=== PATIENT | female | born 1985 | race African-American/Black ===

== ENCOUNTER 2025-05-31 12:37 | Emergency (ER) | payer MEDICAID, SELFPAY ==
--- NOTE | 2025-05-31 12:38 | ED_ITS ---
HPI - General Adult General Date Seen: 05/31/25 Chief complaint: Dizziness/Vertigo Stated complaint: dizziness Time Seen by Provider: 05/31/25 12:38 History of Present Illness HPI narrative: 40 yo F presenting to the ER today with concern for dizziness, headache, vaginal bleeding, blurry vision. Her primary care is through the [facility] in [place] so I do not have access to her old records. She reports that she is a . Her most recent delivery was about 6 months ago. She had apparently a that was complicated by gestational diabetes requiring insulin throughout. She had induction of labor but then failed to progress (apparently her cervix failed to dilate because she had had previous procedure for abnormal Pap smear (possibly a LEEP?) So her labor resulted in delivery by . Her baby was healthy. She was hospitalized for few days after her delivery with preeclampsia and required magnesium infusions but ultimately that resolved. She says that in her checks her labs were normal. She is not on any medications these days. No iron. No diabetes meds. No insulin. She had not had much vaginal bleeding since delivery. She had 1. A couple of months ago. For the past week or so she has been having heavy bouts of bleeding that happened intermittently. She says she often times have heavy dark red bleeding with very small clots that comes fairly heavily for a few hours and then resolves. Sometimes so show carefully through a pad and then stop bleeding. It has been happening off and on for the past week or so. She is not having any bleeding today. She is not having any pelvic cramping. She does not think she is because she had a tubal ligation after her most recent C- section. No vomiting. No diarrhea. No abdominal pain. For the past couple days she has also had a fairly botherssome headache. It is located throughout her head. It comes and goes. It is throughout her head. Along with that she has had some unsteadiness and she feels off balance when she is walking but better when she is lying down. Sometimes when she is walking she feels like her vision is blurry and she has trouble with her depth perception. She is not having double vision. She is not light sensitive. No fever. No neck stiffness or pain. No recent head injury. Headache was not sudden in onset. 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 She had gone about 48 hours without sleep. However she did have a good night's rest last night but the headache just isn't going away. No focal numbness or tingling or weakness. She denies any spinning or vertigo. She came down the [place] to visit her sister who was delivering a baby here in the [facility]. She felt dizzy with blurry vision while driving down and after visiting her sister she still feels like she has blurry vision and headache. She does not feel well enough to drive home so she came here to the ER. Related Data Home Medications ?Medication ?Instructions ?Recorded ?Confirmed No Known Home Medications 05/31/2505/08 Allergies Allergy/AdvReac Type Severity Reaction Status Date / Time No Known Drug Allergies Allergy Verified 05/31/25 12:55 [facility] Social History Smoking Status: Never smoker How often do you have a drink containing alcohol: never AUDIT-C Alcohol total score: 0 Non-prescribed substance use: denies use Exam Narrative: Exam Narrative: Constitutional: Appears well-developed and well-nourished. Alert. Conversant and polite.. Non toxic, but looks uncomfortable. HENT: Head: Atraumatic. No depressed skull fracture, Raccoon Eyes, Li's sign, or hemotympanum. Face normal. TMs normal Nose: Nose normal. Mouth/Throat: Oral mucosa is clear and moist. no trismus. Pharynx normal. Tonsils symmetric. No tonsillar enlargement, erythema, or exudate. Eyes: Conjunctivae normal and not really pale. EOM normal. Pupils equal, round, and reactive to light. No scleral icterus. Neck: Normal range of motion. Neck supple. No tracheal deviation present. No JVD. No stiffness Cardiovascular: Normal rate, regular rhythm. No gallop. No friction rub. No murmur heard. Symmetric radial artery pulses Pulmonary/Chest: Effort normal. No stridor. No respiratory distress. No wheezes. No rales. No rhonchi . No tenderness. Abdominal: Soft. Bowel sounds normal. No distension. No mass. No tenderness. No rebound. No guarding. Musculoskeletal: RUE: Normal range of motion. No tenderness. No deformity LUE: Normal range of motion. No tenderness. No deformity RLE: Normal range of motion. No edema. No tenderness. No deformity LLE: Normal range of motion. No edema. No tenderness. No deformity Neurological: Mental status normal. Attention normal. Alert and oriented x3. GCS 15. Memory normal. Speech fluent. Cognition normal. Cranial Nerves intact II-XII except I did not formally test gag or visual acuity. EOMI. Palate elevates symmetrically and tongue protrudes in the midline. Strength: 5/5 trapezius on the right and left 5/5 deltoid on the right and left 5/5 biceps on the right and left 5/5 triceps on the right and left 5/5 furniture arranger on the right and left 5/5 thumb opposition on the right and le ft 5/5 finger abduction on the right and le ft 5/5 hip flexors (L3) on the right and le ft 5/5 quadriceps (L4) on the right and lef t 5/5 tibialis anterior on the right and l eft 5/5 EHL (L5) on the right and left 5/5 gastrocnemius (S1) on the right and left 5/5 hamstring on the right and left Sensation intact to light touch in both upper extremities (C4-T1) Sensation intact to light touch in Both lower extremities (L4-S1). Finger to nose and coordination normal. Skin: Skin is warm and dry. No rash noted. No pallor. Normal capillary refill. Psychiatric: Normal mood. Normal affect Const: Vital Signs, click to edit/add: Vital Signs - 24 hr 05/31/25 12:55 05/31/25 14:56 Temperature 98.3 F Pulse Rate 87 Pulse Rate [Pulse Oximeter] 87 Respiratory Rate 16 16 Blood Pressure 121/87 Blood Pressure [Ri ght Upper Arm] 120/90 H Pulse Oximetry 96 97 Oxygen Delivery Me thod Room Air Room Air Course Course ED Course: Recheck-sleeping but easily aroused. Said her head headache is getting better. Feeling a little bit less dizzy. Will monitor and recheck. Discussed so far that workup and head CT are reassuring. Patient very pleased and smiling. Reevaluation(s) Reevaluation #1: Recheck-patient awake. Requested discharge to her nurse. Feeling better. Vital Signs Vital signs: Initial Vital Signs Temperature 98.3 F 05/31/25 12:55 Temperature Source Temporal Artery Scan 05/31/25 12:55 Pulse Rate 87 05/31/25 12:55 Respiratory Rate 16 05/31/25 12:55 Blood Pressure 120/90 H 05/31/25 12:55 Blood Pressure Mean 100 05/31/25 12:55 Blood Pressure Position Sitting 05/31/25 12:55 Pulse Oximetry 96 05/31/25 12:55 Oxygen Delivery Method Room Air 05/31/25 12:55 Vital Signs Temperature 98.3 F 05/31/25 12:55 Pulse Rate 87 05/31/25 12:55 Respiratory Rate 16 05/31/25 12:55 Blood Pressure 120/90 H 05/31/25 12:55 Pulse Oximetry 96 05/31/25 12:55 Oxygen Delivery Method Room Air 05/31/25 12:55 Temperature 98.3 F 05/31/25 12:55 Pulse Rate 87 05/31/25 14:56 Respiratory Rate 16 05/31/25 14:56 Blood Pressure 121/87 05/31/25 14:56 Pulse Oximetry 97 05/31/25 14:56 Oxygen Delivery Method Room Air 05/31/25 14:56 Medications Administered Medications: Discontinued Medications Generic Name Dose Route Start Last Admin Trade Name Freq PRN Reason Stop Dose Admin Diphenhydramine HCl 12.5 mg 05/31/25 13:13 05/31/25 13:34 Diphenhydramine 50 Mg/Ml Inj IVP 05/31/25 13:14 12.5 mg ONCE ONE Administration Sodium Chloride 1,000 mls @ 1,000 mls/hr 05/31/25 13:15 05/31/25 14:36 0.9 % Sodium Chloride 1000 Ml IV 05/31/25 14:14 Infused .Q1H ALBINA Infusion Ketorolac Tromethamine 15 mg 05/31/25 13:13 05/31/25 13:34 Ketorolac 15 Mg/Ml Inj IVP 05/31/25 13:14 15 mg ONCE ONE Administration Metoclopramide HCl 10 mg 05/31/25 13:13 05/31/25 13:34 Metoclopramide Hcl 5 Mg/Ml Inj IVP 05/31/25 13:14 10 mg ONCE ONE Administration Medical Decision Making MDM Narrative Medical decision making narrative: Pleasant 40-year-old female who is visiting [place] to see her sister who is having a baby, presents to the ER today with several concerns. She is about 6 months and has been having some intermittent dark red vaginal bleeding off and on for the past week. No abdominal pain or pelvic cramping with this. Does not think she is . Workup shows normal hemoglobin at 12.5, normal platelet count of 226. She has no history of coagulopathy. She is not anticoagulated. She is not . Urinalysis shows scant hematuria which is likely vaginal contamination but no other sign of infection. She is not having any flank pain to suggest kidney stone. She has primary because she is feeling dizzy and unsteady and has a bad headache that is been going on for the past couple of days. She initially attributed her bad headache to sleep deprivation since she has a 6-month-old at home and has been working nights. However it is not getting better even after some rest. Headache was not abrupt in onset. No history of head trauma. No known carbon monoxide exposure. She does not have any fever, leukocytosis, neck stiffness, or other laboratory or exam findings to suggest the presence of bacterial meningitis. Since headache was out of character for her normal headaches we did do a head CT scan which is fortunately negative for any sign of intracranial bleeding, cerebral edema, intracranial mass, or other abnormality. The patient is also experiencing dizziness for the past few days. Describes it as being mostly related to be upright and walking and is better when she lays down. This was suggest possible orthostasis. EKG is obtained and shows sinus rhythm. No ischemia. She is not having any chest pain did we did check a single screening troponin is normal. At this point I suspect that her dizziness is probably related to the headache and vaginal bleeding, rather than to an acute cardiac cause. Patient feels much better after headache medications and IV fluids given here in the ER. Headache is resolving. Dizziness is better. She feels ready to discharge. Would recommend close outpatient follow-up with PCP. Precautions for return to the ER reviewed and provided in writing. Lab Data Labs: Lab Results 05/31/25 05/31/25 Range/Units 13:14 13:30 WBC 3.89 L (4.50-11.00) K/uL RBC 4.29 (4.00-5.20) m/uL Hgb 12.5 (12.0-16.0) gm/dL Hct 38.0 (33.0-51.0) % MCV 89 (80-100) fL MCH 29 (26-34) pg MCHC 33 (32-36) gm/dL RDW Coeff of Robert 13.3 (11.5-15.5) % Plt Count 226 (140-440) K/uL Neut % (Auto) 58.8 (42.0-72.0) % Lymph % (Auto) 29.3 (20-44) % Hubbard % (Auto) 9.5 (0.0-11.0) % Eos % (Auto) 2.1 (0.0-7.0) % Baso % (Auto) 0.3 (0.0-3.0) % Neut # (Auto) 2.30 (1.7-7.0) K/uL Lymph # (Auto) 1.10 (0.90-2.90) K/uL Hubbard # (Auto) 0.40 (0.00-0.90) K/UL Eos # (Auto) 0.10 (0.00-0.50) K/uL Baso # (Auto) 0.00 (0.00-0.30) K/uL Abs Immat Gran (auto) 0.00 (0.00-0.30) K/uL Imm/Tot Granulo (auto) 0.0 % Sodium 134 L (135-149) mmol/L Potassium 4.1 (3.6-5.1) mmol/L Chloride 99 (96-114) mmol/L Carbon Dioxide 30 (20-32) mmol/L Anion Gap 5 L (7-15) mEq/L BUN 11 (5-24) mg/dL Creatinine 0.9 (0.5-1.5) mg/dL Estimated Creat Clear 74.77 Estimated GFR 83 ml/min Glucose 112 (60-115) mg/dL Lactate 0.9 (0.5-1.9) mmol/L Calcium 8.9 (8.4-10.6) mg/dL Troponin I < 0.01 (0.01-0.04) ng/mL HCG, Qual Negative (Negative) Urine Color Yellow (Yellow) Urine Appearance Clear (Clear) Urine pH 8.0 (5.0-8.5) Ur Specific [place] 1.015 (1.000-1.030) Urine Protein Negative (Negative) Urine Glucose (UA) Negative (Negative) Urine Ketones Negative (Negative) Urine Blood Trace-intact A (Negative) Urine Nitrite Negative (Negative) Urine Bilirubin Negative (Negative) Urine Urobilinogen 0.2 (0.2-1.0) Ur Leukocyte Esterase Negative (Negative) Urine RBC 2-5 A (0-2) Urine WBC 2-5 (0-5) Ur Squamous Epith Cells Many A (None-Few) Urine Bacteria Moderate A (None) Imaging Data CT scan - head: Attestation: I have reviewed the pertinent imaging results. Radiologist's impression: IMPRESSION: No acute intracranial noncontrast CT findings. ECG Data Attestation: I personally reviewed and interpreted this ECG as follows: Interpretation: Normal sinus rhythm Rate 76 NM interval 168 Normal QRS axis. No pathologic Q-waves. No ST segment elevation or depression. QTC 374, QTC 420 Discharge Plan Discharge Clinical Impression: Headache, Dizziness, Abnormal vaginal bleeding Patient Disposition: Home, Self-Care Condition: Stable Instructions: Abnormal (Dysfunctional) Uterine Bleeding (ED), Acute Headache (DC) Additional Instructions: I am very pleased that your feeling better. As we discussed, so far your workup looks reassuring. However, it is very important for you to recheck with your regular doctor on Monday. In the meantime, if you have any worsening symptoms please come back to the ER. Especially, return right away if you have worsening headache, fever, blurry vision or double vision, worsening trouble with balance, heavy bleeding, abdominal pain or pelvic cramping. The medications we gave you here in the ER may make you drowsy for the next 4-[address] during that time. Prescriptions: No Action No Known Home Medications Follow Up/Referrals: Provider,Not a Local [Primary Care Provider, Family Practice] Stand Alone Forms: [employer] Info Instructions
[2025-05-31 12:55] VITALS: BP 120/90; PULSE 87; RESP 16; TEMP 36.8; O2SAT 96; BMI 38.3
--- NOTE | 2025-05-31 13:13 | CRLHL7_ITS ---
For Patients: As a result of the Century Cures Act, medical imaging exams and procedure reports are released immediately into your electronic medical record. You may view this report before your referring provider. If you have questions, please contact your health care provider. INDICATION: Headache, dizziness, and blurry vision for 6 weeks COMPARISON: None. TECHNIQUE: CT of the head without contrast. FINDINGS: Brain, ventricles, and extra-axial spaces: No acute intracranial hemorrhage. Mares-white differentiation is grossly preserved. Size of the ventricles and sulci appears to be commensurate with age. There is bilateral basal ganglia mineralization. There is intracranial vascular calcification. Bones: No acute osseous findings. Visualized paranasal sinuses are clear. 1 centimeter osteoma in the right frontal sinus. Visualized mastoid air cells are clear. IMPRESSION: No acute intracranial noncontrast CT findings. Please note that all CT scans at this facility use dose modulation, iterative reconstruction, and/or weight-based dosing when appropriate to reduce radiation dose to as low as reasonably achievable. Dictated by Klever Fernandez MD @ 05/31/2025 2:25:17 PM (Electronically Signed)
--- OUTSIDE RECORDS SUMMARY | 2025-05-31 13:33 | XMS_ITS | Clinical Summary ---
Author Organization [place] Address [address] [place] [address] Care Team Providers Care Creative Lead Name Role Phone Clinic, [facility] Primary Care Provid er Allergies No known active allergies Medications Lidocaine (LIDOCARE) 4 % Patch Place 1 patch onto the skin every 24 hours To prevent lidocaine toxicity, patient should be patch free for 12 hrs daily. 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 Gender Identity Not on file Sexual Orientation Not on file Last Filed Vital Signs Vital Sign Reading Time Taken Comments Blood Pressure 123/78 04/18/2024 9:43 PM CDT Pulse 88 04/18/2024 9:43 PM CDT Temperature 36.6 C (97.8 F) 04/18/2024 3:34 PM CDT Respiratory Rate 18 04/18/2024 3:34 PM CDT Oxygen Saturation 99% 04/18/2024 9:43 PM CDT Inhaled Oxygen Concentration - - Weight 103.2 kg (227 lb 8.2 oz) 04/18/2024 3:34 PM CDT Height 170.2 cm (5' 7) 04/18/2024 3:34 PM CDT Body Mass Index 35.63 04/18/2024 3:34 PM CDT Plan of Treatment Health Maintenance Due Date Last Done Comments ADVANCE CARE PLANNING 1985 ANNUAL REVIEW OF HM ORDERS 1985 YEARLY PREVENTIVE VISIT 01/20/1988 HEPATITIS C SCREENING 2003 MAMMO SCREENING 11/09/2020 11/09/2018, 11/09/2018 HEPATITIS B VACCINE (2 of 2 - CpG 2-dose series) 11/22/2023 10/25/2023 PHQ-2 (once per calendar year) 2024 LIPID 2025 COVID-19 VACCINE ( season) 2025 05/31/2023, 09/14/2022, 06/29/2021, Additional history exists INFLUENZA VACCINE (#1) 2025 , 04/20/2022, 09/06/2021, Additional history exists PAP 09/07/2026 09/07/2023 DIABETES SCREENING 04/18/2027 04/18/2024 DTAP/TDAP/TD VACCINE (3 - Td or Tdap) 05/28/2029 05/28/2019, 05/30/2018 ZOSTER VACCINE (1 of 2) 2035 MENINGITIS VACCINE Aged Out 09/01/2017 No longer eligible based on patient's age to complete this topic HIV SCREENING Completed 09/14/2022 PNEUMOCOCCAL VACCINE: PEDIATRICS (0 to 5 YEARS) AND AT-RISK PATIENTS (6 to 49 YEARS) Aged Out 05/31/2023, 05/30/2018, 08/28/2017 No longer eligible based on patient's age to complete this topic HPV VACCINE (No Doses Required) Completed Procedures Procedure Name Priority Date/Time Associated Diagnosis Comments COMPREHENSIVE METABOLIC PANEL STAT 04/18/2024 3:41 PM CDT from Last 3 Months or Most Recently Relevant to Health Maintenance Results * (ABNORMAL) Comprehensive metabolic panel (04/18/2024 3:41 PM CDT) Sodium 135 135 - 145 mmol/L 04/18/2024 4:16 PM CDT [facility] Potassium 3.6 3.4 - 5.3 mmol/L 04/18/2024 4:16 PM [facility] Carbon Dioxide (CO2) 21(L) 22 - 29 mmol/L 04/18/2024 4:16 PM CDT [facility] Anion Gap 12 7 - 15 mmol/L 04/18/2024 4:16 PM CDT [facility] Urea Nitrogen 9.0 6.0 - 20.0 mg/dL 04/18/2024 4:16 PM CDT [facility] Creatinine 0.81 0.51 - 0.95 mg/dL 04/18/2024 4:16 PM CDT [facility] GFR Estimate >90 >60 mL/min/1.7 3m2 04/18/2024 4:16 PM CDT [facility] Comment:eGFR calculated 2020 CKD-EPI equation. Calcium 9.1 8.8 - 10.4 mg/dL 04/18/2024 4:16 PM CDT [facility] Comment:Reference intervals for this test were updated on 02/20/2024 to reflect our healthy population more accurately. There may be differences in the flagging of prior results with similar values performed with this method. Those prior results can be interpreted in the context of the updated reference intervals. Chloride 102 98 - 107 mmol/L 04/18/2024 4:16 PM CDT [facility] Glucose 111(H) 70 - 99 mg/dL 04/18/2024 4:16 PM CDT [facility] Alkaline Phosphatase 61 40 - 150 U/L 04/18/2024 4:16 PM CDT [facility] AST 23 0 - 45 U/L 04/18/2024 4:16 PM CDT [facility] ALT 19 0 - 50 U/L 04/18/2024 4:16 PM CDT [facility] Protein Total 7.2 6.4 - 8.3 g/dL 04/18/2024 4:16 PM CDT [facility] Albumin 3.9 3.5 - 5.2 g/dL 04/18/2024 4:16 PM CDT [facility] Bilirubin Total <0.2 <=1.2 mg/dL 04/18/2024 4:16 PM CDT [facility] Blood STRUCTURE OF RIGHT UPPER LIMB / Unknown Venipuncture / Unknown 04/18/2024 3:41 PM CDT 04/18/2024 3:46 PM CDT Jensen Valle MD LAB - BLOOD ORDERABLES F inal Result [facility] [address] [facility] (1st floor, no room number) [place] [address], [facility] from Last 3 Months or Most Recently Relevant to Health Maintenance Insurance [facility] Care Teams Creative Lead Relationship Specialty Start Date End Date Clinic, [facility] [address] [place] [id number] PCP - General 04/18/24
[2025-05-31 13:34] LABS: Lactate* 0.9 mmol/L (0.5-1.9)
[2025-05-31] MEDS: METOCLOPRAMIDE HCL 5 MG/ML INJ 10 MG IVP (13:34)
--- OUTSIDE RECORDS SUMMARY | 2025-05-31 13:34 | XMS_ITS ---
Author Organization [facility] Source Produ ction (ClinicalSummary Clone) Address Unknown Care Team Providers Care Bricklayer Apprentice Name Role Phone Unavailable Primary Care Physician Unavailab le Problems Problem Status Start Date End Date Results * [UNITY] ANEUPLOIDY NIPT Performed by: [employer] Component Value Range Date Fraction 11.4% 07/15/2024 07 :29 pm UTC Sex Chromosome Aneuploidy NOT DETECTED 07:29 pm UTC Monosomy X LOW RISK <1 in 10,000 2023 07:29 pm UTC Trisomy 13 LOW RISK <1 in 10,000 2023 07:29 pm UTC Trisomy 18 LOW RISK <1 in 10,000 2023 07:29 pm UTC Trisomy 21 LOW RISK <1 in 10,000 2023 07:29 pm UTC Sex MALE 07/15/2024 07:2 9 pm UTC Gestation FAUSTIN 07/15/20 07:29 pm UTC For detailed report, see PDF See PDF 07/15/2024 07:29 pm UTC 07/15/2024 07:2 9 pm UTC Social History Observation Value Start Date End Date
--- OUTSIDE RECORDS SUMMARY | 2025-05-31 13:34 | XMS_ITS | Clinical Summary ---
Author Organization [employer] [facility] Address [address] [place] [id number] Care Team Providers Care Cooker Syrup Name Role Phone Negin Lorie Kavin SYED Primary Care Provider [phone] Allergies No known active allergies Medications Biktarvy Take 1 Tablet by mouth once daily. 02/14/2022 Active meloxicam (MOBIC) 7.5 mg tabletIndicatio ns:De Quervain's disease (tenosynovitis) TAKE 1-2 TABLETS BY MOUTH DAILY 15 Tablet 03/01/2022 10:58 AM CDT 03/01/2022 Active Active Problems No known active problems Immunizations Immunization Administration Dates Next Due COVID-19 vaccine (Moderna 10 0mcg/0.5mL) PF, MDV 06/29/2021,10/27/2020,09/29/2020 Influenza, IIV3 (Age 6-35 mos) 04/15/2019,2017 Influenza, IIV4 09/06/2021 Meningococcal Vaccine (Menactra) 09/01/2017 Pneumococcal Poly,23-Valent (Pneumovax) 05/30/20 18 Pneumococcal conj 13-Valent (Prevnar 13) 018 Tdap 05/28/2019,05/30/2018 Social History Tobacco Use Types Packs/Day Years Used Date Smoking Tobacco: Never Smokeless Tobacco: Never Alcohol Use Standard Drinks/Week Comments Not Currently 0 (1 standard drink = 0.6 oz pur e alcohol) PHQ-2 Answer Date Recorded PHQ-2 TOTAL SCORE 0 03/01/2022 Social Connections Answer Date Recorded Frequency of Communication with Friends and Fami ly Not on file 03/01/2022 Comments No Sex and Gender Information Value Date Recorded Sex Assigned at Not on file 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 Gender Identity Not on file Sexual Orientation Not on file Obstetrics History Last Filed Vital Signs Vital Sign Reading Time Taken Comments Blood Pressure 116/72 03/01/2022 10:20 AM CDT Pulse 76 03/01/2022 10:20 AM CDT Temperature - - Respiratory Rate - - Oxygen Saturation - - Inhaled Oxygen Concentration - - Weight 75.8 kg (167 lb) 03/01/2022 10:20 AM CDT Height 165.1 cm (5' 5) 03/01/2022 10:20 AM CDT Body Mass Index 27.79 03/01/2022 10:20 AM CDT Plan of Treatment Health Maintenance Due Date Last Done Comments HIV for age 15-65 01/20/2000 Hepatitis C screening for ag e 18-79 2003 Hepatitis B series for 19+ ( 1 of 3 - 19+ 3-dose series) 01/20/2004 Pap test for age 21-65 2006 HPV series for age 9-45 (1 - 3-dose SCDM series) 01/20/2012 BMI (ht and wt on same day) for age 18+ 03/01/2023 03/01/2022 Depression screening for age 12+ 03/01/2023 03/01/2022 Influenza Vaccine (#1) 2025 2, 04/15/2019, 05/16/2018 Tetanus booster 05/28/2029 05/28/2019, 05/30/2018 RSV vaccine for adults or (1 - 1-dose 75+ series) 01/20/2060 Pneumococcal series for age 6-49 Aged Out 05/30/2018, 08/28/2017 No longer eligible based on patient's age to complete this topic Insurance [facility] Care Teams Cooker Syrup Relationship Specialty Start Date End Date Lorie Kam, SIGHT MOUNTER [address] [place] [address] PCP - General Nurse Practitioner 03/01/22
[2025-05-31 13:36] LABS: Appearance Urine Clear (Clear)
[2025-05-31 13:36] LABS: Hematocrit* 38.0 % (33.0-51.0); Hemoglobin* 12.5 gm/dL (12.0-16.0); Immature Granulocytes Abs Auto 0.00 K/uL (0.00-0.30); Immature Granulocytes Pct Auto 0.0 %; Mean Corpuscular HGB Conc 33 gm/dL (32-36); Mean Corpuscular Hemoglobin 29 pg (26-34); Mean Corpuscular Volume 89 fL (80-100); RDW Coefficient of Variation % 13.3 % (11.5-15.5); Red Blood Count* 4.29 m/uL (4.00-5.20); White Blood Count* 3.89 K/uL (4.50-11.00)
[2025-05-31 13:37] LABS: Lymphocytes Absolute Auto 1.10 K/uL (0.90-2.90); Slide Review Reflex No
[2025-05-31 13:49] LABS: Chloride* 99 mmol/L (96-114); Potassium* 4.1 mmol/L (3.6-5.1); Sodium* 134 mmol/L (135-149)
[2025-05-31 13:52] LABS: Anion Gap 5 mEq/L (7-15); Blood Urea Nitrogen* 11 mg/dL (5-24); Carbon Dioxide* 30 mmol/L (20-32); Creatinine* 0.9 mg/dL (0.5-1.5); Est. Creatinine Clearance* 74.77; Estimated Glomerular Filt Rate 83 ml/min
[2025-05-31 13:53] LABS: Calcium* 8.9 mg/dL (8.4-10.6); Glucose* 112 mg/dL (60-115)
[2025-05-31 14:04] LABS: HCG Qualitative Serum* Negative (Negative)
[2025-05-31 14:56] VITALS: BP 121/87; PULSE 87; RESP 16; O2SAT 97
== END 2025-05-31 15:03 | disposition home or self-care (01) ==
PROVIDERS: Emergency Provider Emergency Medicine
DX: R42 Dizziness and giddiness (principal); R51.9 Headache, unspecified; N93.9 Abnormal uterine and vaginal bleeding, unspecified
CPT/HCPCS: 36415; 70450; 80048; 81001; 83605; 84484; 84703; 85025; 87086; 93005; 96374; 96375; 99283; 99284; J1200; J1885; J2765; J7030